=== PATIENT | male | born 1960 | race Caucasian/White ===

== ENCOUNTER → 2020-07-05 | Outpatient (CLI) | payer BC ==
--- NOTE | 2020-07-05 16:00 | REP ---
INDICATION: NON TOXIC SINGLE THYROID NODULE COMPARISON: None. TECHNIQUE: Fierro scale and color evaluation of the thyroid gland using the linear high frequency transducer. FINDINGS: The thyroid gland is normal in contour, size and general parenchymal echotexture. Right thyroid lobe measures 4.7 x 1.5 x 2.0 cm and includes 8 x 6 x 8 mm and 8 x 6 x 7 mm hypoechoic upper pole nodules along with 4 x 4 x 3 mm lower pole calcification. Isthmus measures 4.7 mm in width. Left lobe measures 4.8 x 1.5 x 1.4 cm and includes 11 x 7 x 9 mm complex partially calcified nodule. IMPRESSION: Multiple bilateral nodules with the largest left-sided nodule being indeterminate/mildly suspicious based on appearance. <Electronically signed by Lenard Diaz > 07/05/20 [id number]
== END ==
LOC: M RAD 14:20
PROVIDERS: ATTEND Family Medicine
DX: E04.2 Nontoxic multinodular goiter (principal)

== ENCOUNTER → 2020-09-03 | Outpatient (REF) | payer BC | LOC: M LAB REF 12:25 | PROVIDERS: ATTEND Physician Assistant Medical | DX: Z11.59 Encounter for screening for other viral diseases (principal) ==

== ENCOUNTER → 2020-10-23 | Outpatient (CLI) | payer SELFPAY | LOC: M LABSMTC 13:16 | PROVIDERS: ATTEND Pediatrics | DX: Z20.822 Contact with and (suspected) exposure to COVID-19 (principal) ==

== ENCOUNTER → 2020-11-09 | Outpatient (CLI) | payer SELFPAY | LOC: M LABSMTC 13:24 | PROVIDERS: ATTEND Pediatrics | DX: Z11.52 Encounter for screening for COVID-19 (principal) ==